=== PATIENT | male | born 1990 | race Caucasian/White ===

== ENCOUNTER 2019-12-05 13:18 | Emergency (ER) | payer OTHER ==
[~2019-12-05] VITALS: Ht 172.7 cm; Wt 113.4 kg
== END 2019-12-05 18:24 | disposition home or self-care (01) ==
LOC: EDBD 13:18 → ER 13:18
DX: D69.49 Other primary thrombocytopenia (principal); B34.9 Viral infection, unspecified; Z20.828 Contact with and (suspected) exposure to other viral communicable diseases